=== PATIENT | female | born 1980 | race Asian ===

== ENCOUNTER → 2022-05-19 08:58 | Outpatient (BNVA) | payer OTHER, SELFPAY | PROVIDERS: PCP Pediatrics; Visit Provider Internal Medicine Rheumatology | DX: Z13.89 Encounter for screening for other disorder (principal) ==

== ENCOUNTER 2023-10-29 22:31 | Emergency (ER) | payer OTHER, SELFPAY ==
[2023-10-29 22:36] VITALS: BP 139/97; PULSE 77; RESP 18; TEMP 36.8; O2SAT 98; BMI 22.2
[2023-10-30 03:49] VITALS: BP 113/70; PULSE 57; RESP 15; O2SAT 98
--- NOTE | 2023-10-30 05:57 | ED.EXTPRO ---
HPI - Extremity Problem General Chief complaint: Extremity Injury, Upper Stated complaint: rt side should pain down the side Time Seen by Provider: 10/30/23 05:39 Source: patient Mode of arrival: ambulatory Limitations: no limitations History of Present Illness ED Provider: Dr. Jo Riley HPI Narrative: Patient comes to the emergency room complaining of numbness and tingling around the right shoulder, right upper back, down the right arm. Patient states it started approximately a year ago. Patient has been seen multiple times by her primary care physician, has an appointment pending with orthopedics and has been seen by rheumatology. Related Data Home Medications ?Medication ?Instructions ?Recorded ?Confirmed ibuprofen 600 mg tablet 600 mg PO Q8H PRN pain 05/19/22 05/19/22 Previous Rx's ?Medication ?Instructions ?Recorded gabapentin 100 mg capsule 100 mg PO TID #60 caps 10/30/23 Allergies Allergy/AdvReac Type Severity Reaction Status Date / Time No Known Allergies Allergy Verified 10/29/23 22:37 Review of Systems Review of Systems: Constitutional : No Weight loss, No Fever, No Chills, No Night Sweats, No Fatigue, No Malaise ENT/Mouth : No Hearing loss, No Ear Pain, No Nasal Congestion, No Sinus Pain, No Hoarseness, No sore throat, No Rhinorrhea, No Swallowing Difficulty Eyes: No Eye Pain, No Swelling, No Redness, No Foreign Body, No Discharge, No Vision Changes Cardiovascular : No Chest Pain, No SOB, No Dyspnea on Exertion, No Orthopnea, No Edema, No Palpitations Respiratory : No Cough, No Sputum, No Wheezing, No Smoke Exposure, No Dyspnea Gastrointestinal : No Nausea, No Vomiting, No Diarrhea, No Constipation, No abdominal Pain, No Hematochezia, No Melena Genitourinary : no irregular bleeding, No Dysuria, No Urinary Frequency, No Hematuria, No Urinary Incontinence, No Urgency, No Flank Pain, No Urinary Flow Changes, No Hesitancy Musculoskeletal : No joint pain, complaining of myalgias paresthesias on the right arm, chronic, been present for over a year Skin : No Skin Lesions, No rash Neuro : No Weakness, No Numbness, No Paresthesias, No Loss of Consciousness, No Dizziness, No Headache Psych : No Anxiety/Panic, No Depression, No SI/HI/AH/VH, No Social Issues, Heme/Lymph: No Bruising, No Bleeding,No Lymphadenopathy Endocrine : No Polyuria, No Polydipsia, No Temperature Intolerance [facility] Past Medical History Medical History Low vitamin D level Thrombocytopenia TB lung, latent Surgical History Blevins teeth extracted Family History Family History Mother Hypertension Acute arthritis Father Hypertension Maternal Grandmother Cancer of lung Son Asthma Social History Social History (Updated 05/19/22 @ 09:19 by BHUMIKA Schwab) Alcohol intake: current Alcohol intake frequency: does not drink Patient Tobacco Use Status: Never used Tobacco Advance Directives: No Advance Directives Information Provided: No Do you have a plan to hurt others: No Plan Physical Exam Vital Signs: Vital Signs: Last Vital Signs Temp 98.2 F 10/29/23 22:36 Pulse 57 10/30/23 03:49 Resp 15 10/30/23 03:49 BP 113/70 10/30/23 03:49 Pulse Ox 98 10/30/23 03:49 O2 Del Method Room Air 10/30/23 03:49 BMI result Body Mass Index 22.2 Const: Other: Appearance: Alert. Oriented X3. No acute distress. Eyes: Pupils equal, round and reactive to light. ENT: Pharynx normal. Neck: Normal inspection. Neck supple. No lymph nodes noted. No crepitus CVS: Normal heart rate and rhythm. Pulses normal. Normal S1 and S2 Respiratory: No respiratory distress. Breath sounds normal. No Wheezing. No rales Abdomen: Soft and nontender. No rigidity. No distention. Skin: Skin warm and dry. Normal skin color. Normal skin turgor. Extremities: No lower extremity edema. No Lacerations. No Rash, normal strength, NIH 0 Neuro: Oriented X 3. No motor deficit. No sensory deficit. Moving all extremities. No slurred speech. CN 2 through 12 grossly intact Psych: calm, cooperative, normal affect Medical Decision Making Medical Decision Making MDM Narrative: I discussed the physical exam with the patient, no acute findings. -I discussed with the patient that she likely has cervical radiculopathy. Patient will likely need an MRI. -patient was also seen by rheumatology a few days ago, they suspect patient has fibromyalgia. Not a rheumatology process. -patient states that in a few weeks she will move to [place]. -in the meantime, I discussed with the patient that she may benefit from a trial of gabapentin to help with the discomfort. However, patient we would need physical therapy and MRI. Patient agrees with plan Differential Diagnosis Differential Diagnoses: The differential diagnosis associated with the presentation includes Discharge Plan Discharge Clinical Impression: Cervical radiculopathy Patient Disposition: Home, Self-Care Instructions: Cervical Radiculopathy (ED) Additional Instructions: Please follow-up with your primary care physician tomorrow. If you have any worsening or new symptoms, please return to the emergency room or call 911 Prescriptions: New gabapentin 100 mg capsule 100 mg PO TID Qty: 60 0RF No Action ibuprofen 600 mg tablet 600 mg PO Q8H PRN (Reason: pain) Print Language: Hebrew
== END 2023-10-30 06:21 | disposition home or self-care (01) ==
PROVIDERS: Emergency Provider Emergency Medicine; PCP Pediatrics
DX: M54.12 Radiculopathy, cervical region (principal)
CPT/HCPCS: 99283